=== PATIENT | male | born 1985 | race African-American/Black ===

== ENCOUNTER 2021-04-27 22:59 | Emergency (ER) | payer SELFPAY ==
[~2021-04-27] VITALS: Ht 175.3 cm; Wt 68.0 kg
[2021-04-27 23:02] VITALS: BP 145/100
[2021-04-28] MEDS ORDERED: VISCOUS LIDOCAINE 2% 15 ML UDC MM PRN (00:30)
== END 2021-04-28 01:03 | disposition home or self-care (01) ==
LOC: ER 22:59
DX: J02.9 Acute pharyngitis, unspecified (principal); Z20.822 Contact with and (suspected) exposure to COVID-19; R03.0 Elevated blood-pressure reading, without diagnosis of hypertension
CPT/HCPCS: 87426; 99283